=== PATIENT | male | born 1980 | race Hispanic/Latino ===

== ENCOUNTER 2016-06-09 22:21 | Emergency (ER) | payer SELFPAY ==
[2016-06-09] MEDS ORDERED: Ondansetron ODT 4 MG TAB ONE (22:51)
--- NOTE | 2016-06-09 22:54 | ERRECORD ---
[facility] EMERGENCY RECORD HPI SHORTNESS OF BREATH (22:36 JLOY) CHIEF COMPLAINT: Patient presents for evaluation of shortness of breath, Patient presents for evaluation of Pt with 2 weeks of dry cough, SOB, and chest tightness. Also with a few days of hoarse voice and felling of throat tight. Has a childhood history of asthma but no meds or treatment recently. HISTORIAN: History provided by patient. LOCATION: Symptoms are generalized. QUALITY: Symptoms described as tightness. TIME COURSE: Gradual onset of symptoms, Symptoms are worsening, are constant. ASSOCIATED WITH: No associated chills, Associated with cough, No associated diarrhea, No associated fever, No associated hemoptysis, Associated with nausea, intermittent, No associated vomiting. EXACERBATED BY: Patient's condition exacerbated by nothing. RELIEVED BY: Patient's condition relieved by nothing, Patient's condition relieved by nothing because patient has not tried anything for relief. ROS (22:38 JLOY) CONSTITUTIONAL: Historian denies chills, denies fever. EYES: Historian denies eye pain, denies eye redness, denies eye discharge. ENT: Historian denies rhinorrhea, denies sore throat. CARDIOVASCULAR: chest tightness. RESPIRATORY: Historian reports cough, reports shortness of breath, denies sputum. GI: Historian denies abdominal pain, denies constipation, denies diarrhea, reports nausea, denies vomiting. GENITOURINARY MALE: Historian denies dysuria, denies hematuria. MUSCULOSKELETAL: Historian denies back pain. SKIN: Historian denies rash. NEUROLOGIC: Historian denies dizziness, occasional mild HUTCHISON. PAST MEDICAL HISTORY MEDICAL HISTORY: Tetanus not up to date, Past medical history includes pulmonary disease, asthma, Flu vaccine not up to date, Pneumococcal vaccine not up to date,. (22:30 KASA) MALE SURGICAL HISTORY: Left ear reconstruction (took cartlidge from ribs). (22:30 KASA) PSYCHIATRIC HISTORY: No previous psychiatric history. (22:30 KASA) SOCIAL HISTORY: Patient drinks socially, every week, Patient is a former drug user, abused marijuana, Drug history notes: Last used about a month ago, Patient has no smoking history, Lives at home, Lives with friends. (22:30 KASA) NOTES: Nursing records reviewed, Agree with nursing records. (22:39 JLOY) &a-1R&a+25V*p+0X*k3489I*c202B*c15G*c2P*p-0X&a-25V&a+1R Name: Bassam Wells : 1980 M35 MedRec: [id number] AcctNum: [id number] Prepared: TueJun 09, 2016 23:31 by Interface Page 1 of 3 pMD [facility] EMERGENCY RECORD KNOWN ALLERGIES No Known Drug Allergies CURRENT MEDICATIONS No recorded medications VITAL SIGNS VITAL SIGNS: BP: 148/93, Pulse: 66, Resp: 13, Temp: 99.1 (Oral), Pain: 8 (Pressure), O2 sat: 98 on Room Air, Time: 06/09/2016 22:24. (22:24 KASA) BP: 141/109, Pulse: 78, Resp: 17, O2 sat: 99 on Room Air, Time: 06/09/2016 23:00. (23:00 KASA) BP: 130/88, Pulse: 73, Resp: 15, O2 sat: 97 on Room Air, Time: 06/09/2016 23:03. (23:03 KASA) BP: 121/77, Pulse: 69, Resp: 16, O2 sat: 95 on RA, Time: 06/09/2016 23:21. (23:21 KASA) PHYSICAL EXAM (22:38 [facility]) CONSTITUTIONAL: Vital Signs Reviewed, Patient appears non toxic, Patient alert and oriented to person, place and time. EYES: Eye exam included findings of eyelids normal to inspection, Pupils equally round and reactive to light, Conjunctiva normal. ENT: Pharynx exam normal, Uvula exam normal, Tonsil exam normal, Mouth exam normal, mucous membranes moist. NECK: Neck exam included findings of normal range of motion, Trachea midline, Cervical adenopathy, tender. RESPIRATORY CHEST: Respiratory exam included findings of no respiratory distress, No wheezing, No rales, No rhonchi, Chest exam included findings of chest movement symmetrical, coarse BS bilaterally. CARDIOVASCULAR: Cardiovascular exam included findings of heart rate regular rate and rhythm, Heart sounds normal, normal S1, normal S2, no murmurs, no rub, no gallop. ABDOMEN MALE: Abdominal exam included findings of abdomen tender, to the epigastric region, mild intensity, Bowel sounds normal, Liver normal, Spleen normal, no peritoneal signs, no rigidity, no guarding, no rebound. NEURO: Mercedita coma scale 15, Neuro exam findings include patient oriented to person, place and time, Speech normal. SKIN: Skin exam included findings of skin warm, dry, and normal in color, no rash. PSYCHIATRIC: Normal affect. MEDICATION ADMINISTRATION SUMMARY Drug Name: azithromycin oral, Dose Ordered: 500 mg, Route: Oral, Status: Given, Time: 23:18 06/09/2016, Drug Name: Zofran ODT, Dose Ordered: 4 mg, Route: Oral, Status: Given, Time: 22:52 06/09/2016, &a-1R&a+25V*p+0X*x8447N*c202B*c15G*c2P*p-0X&a-25V&a+1R Name: Bassam Wells : 1980 M35 MedRec: [id number] AcctNum: [id number] Prepared: TueJun 09, 2016 23:31 by Interface Page 2 of 3 pMD [facility] EMERGENCY RECORD Drug Name: *DuoNeb, Dose Ordered: 3 mL, Route: Nebulize, Status: Given, Time: 22:39 06/09/2016, *Additional information available in notes, Detailed record available in Medication Service section. DOCTOR NOTES (23:15 FRED) RE-EVALUATION: The patient's condition is unchanged, Exam unchanged after the neb treatment. PROBLEM LIST No recorded problems DIAGNOSIS (23:14 FRED) FINAL: PRIMARY: Acute bronchitis. PRESCRIPTION (23:14 FRED) azithromycin oral: TABLET : 250 mg : ORAL : Quantity: 250 Unit: mg Route: ORAL Schedule: once a day Dispense: 4 May substitute. Refills: No Refills . NOTES: No Refills. DISPOSITION PATIENT: Disposition Type: Discharge, Disposition: *Discharge Home. (23:14 FRED) Patient left the department. (23:28 KELSEY) Sousa: FRED=MD Beau, Kareem COLE=YANELI Jimenez, Elina &a-1R&a+25V*p+0X*a2791P*c202B*c15G*c2P*p-0X&a-25V&a+1R Name: Amber Wellsan A : 1980 M35 MedRec: [id number] AcctNum: [id number] Prepared: Rex Jun 09, 2016 23:31 by Interface Page 3 of 3 pMD MTDD
--- NOTE | 2016-06-09 22:59 | PICIS ---
[facility] EMERGENCY RECORD TRIAGE (22:26 KASA) TRIAGE NOTES: Difficulty breathing, "feels like something is pressing on my chest at time" "feels like something is stuck in my throat",. (22:26 KASA) PATIENT: NAME: Bassam Wells, AGE: 35, GENDER: male, : Tue1980, TIME OF GREET: TueJun 09, 2016 22:21, PREFERRED LANGUAGE: Iranian, ETHNICITY: or , ECODE BILLING MAP: [facility], SSN: [id number], Zip Code: [address], KG WEIGHT: 72.57, PHONE: , , , PERSON ID: [id number], PCP: Alphonso HARDEN DONNA. (22:26 KASA) COMPLAINT: DIFFICULTY BREATHING. (22:26 KASA) ADMISSION: URGENCY: 3 Urgent, ADMISSION SOURCE: Home, TRANSPORT: CAR, BED: ER -03. (22:26 KASA) ASSESSMENT: Assessment: RR even and slightly labored., Symptoms began 06/09/2016. (22:30 KASA) PAIN: Patient complains of pain described as, pressure, on a scale 0-10 patient rates pain as 8, Location Chest, Pain is constant, Onset was 05/26/2016, Aggravating factors:, No relieving factors, Notes: on-going for the past 2 weeks but constant since this weekend. (22:30 KASA) IMMUNIZATIONS: Flu vaccine not up to date, Tetanus not up to date. (22:30 KASA) SIRS SCORING: Heart Rate 55-109 (0), Temp range 96.8-101.1 (0), respiratory rate 12-24 (0), Mental Status altered: no (0). (22:30 KASA) TRIAGE SCREENING: Patient denies suicidal ideation, Patient denies presence of domestic violence. (22:30 KASA) PROVIDERS: TRIAGE NURSE: Elina Jimenez RN. (22:26 KASA) VITAL SIGNS: BP 148/93, Pulse 66, Resp 13, Temp 99.1, (Oral), Pain 8, (Pressure), O2 Sat 98, on Room Air, Time 06/09/2016 22:24. (22:24 KASA) PREVIOUS VISIT ALLERGIES: No Known Drug Allergies. (22:26 KASA) No Known Drug Allergies. (22:30 KASA) KNOWN ALLERGIES No Known Drug Allergies CURRENT MEDICATIONS No recorded medications VITAL SIGNS VITAL SIGNS: BP: 148/93, Pulse: 66, Resp: 13, Temp: 99.1 (Oral), Pain: 8 (Pressure), O2 sat: 98 on Room Air, Time: 06/09/2016 22:24. (22:24 KASA) BP: 141/109, Pulse: 78, Resp: 17, O2 sat: 99 on Room Air, Time: 06/09/2016 23:00. (23:00 KASA) BP: 130/88, Pulse: 73, Resp: 15, O2 sat: 97 on Room Air, Time: 06/09/2016 23:03. (23:03 KASA) &a-1R&a+25V*p+0X*a8735H*c202B*c15G*c2P*p-0X&a-25V&a+1R Name: Russell Bassam A : 1980 M35 MedRec: [id number] AcctNum: [id number] Prepared: TueJun 09, 2016 23:36 by Interface Page 1 of 8 pMD [facility] EMERGENCY RECORD BP: 121/77, Pulse: 69, Resp: 16, O2 sat: 95 on RA, Time: 06/09/2016 23:21. (23:21 KASA) NURSING ASSESSMENT: RESPIRATORY /CHEST (22:30 KASA) CONSTITUTIONAL: Patient arrives ambulatory, Gait steady, History obtained from patient, Patient appears, uncomfortable, Patient cooperative, Patient alert, Oriented to person, place and time, Skin warm, Skin dry, Skin normal in color, Mucous membranes pink, Mucous membranes moist, Patient complains of Difficulty breathing, Difficulty breathing, "feels like something is pressing on my chest at time" "feels like something is stuck in my throat",. RESPIRATORY/CHEST: Respiratory assessment findings include respiratory effort easy, Respirations regular, Converses, with hoarse voice, Neck and chest exam findings include trachea midline, Chest expansion equal, Chest movement symmetrical, Associated with cough, no associated fever. SAFETY: Side rails up, Cart/Stretcher in lowest position, Family at bedside, Call light within reach, Hospital ID band on. NURSING PROCEDURE: DISCHARGE NOTE (23:21 KASA) DISCHARGE: Patient discharged to home, ambulating without assistance, friend driving, accompanied by friend, Summary of Care printed/ provided, Discharge instructions given to patient, Simple or moderate discharge teaching performed, . Educated and provided handout regarding diagnosis of: Acute Bronchitis Follow up with PCP in 7-10 days., Prescriptions given and instructions on side effects given, Name of prescription(s) given: Azithromycin, Above person(s) verbalized understanding of discharge instructions and follow-up care, Patient treated and evaluated by physician. BELONGINGS: Belongings and valuables with patient upon arrival to the Emergency Department include:, Belongings and valuables with patient at time of discharge include:, Belongings remain with patient, Valuables remain with patient. VITAL SIGNS: BP: 121, / 77, Pulse: 69, Resp: 16, O2 sat: 95, on: RA. NURSING PROCEDURE: RESPIRATORY INTERVENTIONS PATIENT IDENTIFIER: Patient actively involved in identification process, Patient's identity verified by patient stating name, Patient's identity verified by patient stating date. (22:37 KASA) RESPIRATORY INTERVENTIONS: Respiratory interventions indicated for SOB, Patient given ALBUTEROL with ATROVENT, Single dose nebulizer, Dose: 3 ml, Aerochamber used, Aerochamber instruction given, Patient returned demonstration of use of aerochamber. (22:37 KASA) FOLLOW-UP: After procedure, oxygen saturation 99%, on room air. &a-1R&a+25V*p+0X*i4613X*c202B*c15G*c2P*p-0X&a-25V&a+1R Name: Bassam Wells : 1980 M35 MedRec: [id number] AcctNum: [id number] Prepared: TueJun 09, 2016 23:36 by Interface Page 2 of 8 pMD [facility] EMERGENCY RECORD (22:49 KASA) SAFETY: Side rails up, Cart/Stretcher in lowest position, Call light within reach, Hospital ID band on, Friend(s) at bedside. (22:37 KASA) NURSING PROCEDURE: TEACHING (23:19 KASA) TEACHING: Simple or moderate teaching performed, by YANELI Arteaga, BRONCHITIS is an infection of the air passages (bronchial tubes). It often occurs during the common cold. Symptoms include cough with mucus (phlegm) and low-grade fever. Bronchitis usually lasts 7-14 days. Mild cases can be treated with simple home remedies. More severe infection is treated with an antibiotic. Home Care: 1. If symptoms are severe, rest at home for the first 2-3 days. When you resume activity, don't let yourself get too tired. 2. Do not smoke. Avoid being exposed to the smoke of others. 3. You may use acetaminophen (Tylenol) or ibuprofen (Motrin, Advil) to control fever or pain, unless another medicine was prescribed for this. [NOTE: If you have chronic liver or kidney disease or ever had a stomach ulcer or GI bleeding, talk with your doctor before using these medicines.] 4. Your appetite may be poor, so a light diet is fine. Avoid dehydration by drinking 6-8 glasses of fluids per day (water, soft, drinks, juices, tea, soup, etc.). Extra fluids will help loosen secretions in the lungs. 5. Tycl-wev-kqcijms cough medicines that contain dextromethorphan (such as Robitussin DM) and decongestants (Actifed or Sudafed) may help relieve cough and congestion. [NOTE: Do not use decongestants if you have high blood pressure.] 6. Finish all antibiotic medicine, even if you are feeling better after only a few days. Follow Up with your doctor or as directed if you dont start to feel better after three days. [NOTE: If you are age 65 or older, or if you have chronic asthma or COPD, we recommend a PNEUMOCOCCAL VACCINATION every five years and a yearly INFLUENZAVACCINATION (FLU-SHOT) every . Ask your doctor about this. If you had an X-ray, a radiologist will review it. You will be notified of any new findings that may affect your care.] Get Prompt Medical Attention if any of the following occur: Fever over 100.4F (38.0C) for more than three days Trouble breathing, wheezing or pain with breathing Coughing up blood or increased amounts of colored sputum Weakness, drowsiness, headache, facial pain, ear pain or a stiff neck PATIENT &/OR CAREGIVER VERBALIZED UNDERSTANDING OF THE TEACHING PROVIDED AND WAS ABLE TO DEMONSTRATE TEACHING EVIDENCED BY TEACH BACK. &a-1R&a+25V*p+0X*e2668R*c202B*c15G*c2P*p-0X&a-25V&a+1R Name: Bassam Wells : 1980 M35 MedRec: [id number] AcctNum: [id number] Prepared: TueJun 09, 2016 23:36 by Interface Page 3 of 8 pMD [facility] EMERGENCY RECORD NURSING PROCEDURE: TRANSPORT TO TESTS PATIENT IDENTIFIER: Patient actively involved in identification process, Patient's identity verified by patient stating name, Patient's identity verified by patient stating date. (22:49 KASA) TRANSPORT TO TESTS: Transport indicated to facilitate diagnosis, Patient transported to x-ray, via cart, Accompanied by x-ray wellfield technician. (22:49 KASA) FOLLOW-UP: After procedure, patient returned to emergency department. (22:59 KASA) SAFETY: Side rails up, Cart/Stretcher in lowest position, Call light within reach, Hospital ID band on, Friend(s) at bedside. (22:49 KASA) ORDER DETAILS Order Name: ERRT * Smal Vol Neb Initial Trmt, Status: Active, Time: 23:11 06/09/2016, User: KELSEY, - Ordered for: MD Yanez Joshua, - Entered by: YANELI Jimenez Kathy - TueJun 09, 2016 23:11, - Quantity: 1, Order Name: XR Chest Pa & Lat STANDARD, Status: Active, Time: 22:36 06/09/2016, User: FRED, - Ordered for: MD Yanez Joshua, - Entered by: MD Yanez Joshua - TueJun 09, 2016 22:36, - Quantity: 1. MEDICATION ADMINISTRATION SUMMARY Drug Name: azithromycin oral, Dose Ordered: 500 mg, Route: Oral, Status: Given, Time: 23:18 06/09/2016, Drug Name: Zofran ODT, Dose Ordered: 4 mg, Route: Oral, Status: Given, Time: 22:52 06/09/2016, Drug Name: *DuoNeb, Dose Ordered: 3 mL, Route: Nebulize, Status: Given, Time: 22:39 06/09/2016, *Additional information available in notes, Detailed record available in Medication Service section. MEDICATION SERVICE azithromycin oral: Order: azithromycin oral (azithromycin) - Dose: 500 mg : Oral Ordered by: Kareem Yanez MD Entered by: Kareem Yanez MD TueJun 09, 2016 23:13 , Acknowledged by: Elina Jimenez RN TueJun 09, 2016 23:16 Documented as given by: Elina Jimenez RN TueJun 09, 2016 23:18 Patient, Medication, Dose, Route and Time verified prior to administration. Amount given: 500 mg, Site: Medication administered P.O., Correct patient, time, route, dose and medication confirmed prior to administration, Patient advised of actions and side-effects prior to administration, Allergies confirmed and medications reviewed prior to &a-1R&a+25V*p+0X*j7937F*c202B*c15G*c2P*p-0X&a-25V&a+1R Name: Russell Jimbo : 1980 M35 MedRec: [id number] AcctNum: [id number] Prepared: TueJun 09, 2016 23:36 by Interface Page 4 of 8 pMD [facility] EMERGENCY RECORD administration, Patient in position of comfort, Side rails up, Cart in lowest position, Friend at bedside. DuoNeb: Order: DuoNeb (ipratropium bromide/albuterol sulfate) - Dose: 3 mL : Nebulize Notes: (0.5mg Ipratropium Leoti/3mg Albuterol Sulfate = 3ml) Ordered by: Kareem Yanez MD Entered by: Kareem Yanez MD TueJun 09, 2016 22:36 , Acknowledged by: Elina Jimenez RN TueJun 09, 2016 22:39 Documented as given by: Elina Jimenez RN TueJun 09, 2016 22:39 Patient, Medication, Dose, Route and Time verified prior to administration. Amount given: 3 ml, Site: Medication administered via Hand-held nebulizer, With oxygen, Correct patient, time, route, dose and medication confirmed prior to administration, Patient advised of actions and side-effects prior to administration, Allergies confirmed and medications reviewed prior to administration, Patient in position of comfort, Side rails up, Cart in lowest position, Friend at bedside. Zofran ODT: Order: Zofran ODT (ondansetron) - Dose: 4 mg : Oral Ordered by: Kareem Yanez MD Entered by: Kareem Yanez MD TueJun 09, 2016 22:51 , Acknowledged by: Elina Jimenez RN TueJun 09, 2016 22:52 Documented as given by: Elina Jimenez RN TueJun 09, 2016 22:52 Patient, Medication, Dose, Route and Time verified prior to administration. Amount given: 4 mg, Site: Medication administered P.O., Correct patient, time, route, dose and medication confirmed prior to administration, Patient advised of actions and side-effects prior to administration, Allergies confirmed and medications reviewed prior to administration, Patient in position of comfort, Side rails up, Cart in lowest position, Friend at bedside. HPI SHORTNESS OF BREATH (22:36 [facility]) CHIEF COMPLAINT: Patient presents for evaluation of shortness of breath, Patient presents for evaluation of Pt with 2 weeks of dry cough, SOB, and chest tightness. Also with a few days of hoarse voice and felling of throat tight. Has a childhood history of asthma but no meds or treatment recently. HISTORIAN: History provided by patient. LOCATION: Symptoms are generalized. QUALITY: Symptoms described as tightness. TIME COURSE: Gradual onset of symptoms, Symptoms are worsening, are constant. ASSOCIATED WITH: No associated chills, Associated with cough, No associated diarrhea, No associated fever, No associated hemoptysis, Associated with nausea, intermittent, No associated vomiting. EXACERBATED BY: Patient's condition exacerbated by nothing. RELIEVED BY: Patient's condition relieved by nothing, Patient's condition relieved &a-1R&a+25V*p+0X*r8368X*c202B*c15G*c2P*p-0X&a-25V&a+1R Name: Bassam Wells : 1980 M35 MedRec: [id number] AcctNum: [id number] Prepared: TueJun 09, 2016 23:36 by Interface Page 5 of 8 pMD [facility] EMERGENCY RECORD by nothing because patient has not tried anything for relief. ROS (22:38 [facility]) CONSTITUTIONAL: Historian denies chills, denies fever. EYES: Historian denies eye pain, denies eye redness, denies eye discharge. ENT: Historian denies rhinorrhea, denies sore throat. CARDIOVASCULAR: chest tightness. RESPIRATORY: Historian reports cough, reports shortness of breath, denies sputum. GI: Historian denies abdominal pain, denies constipation, denies diarrhea, reports nausea, denies vomiting. GENITOURINARY MALE: Historian denies dysuria, denies hematuria. MUSCULOSKELETAL: Historian denies back pain. SKIN: Historian denies rash. NEUROLOGIC: Historian denies dizziness, occasional mild HUTCHISON. PAST MEDICAL HISTORY MEDICAL HISTORY: Tetanus not up to date, Past medical history includes pulmonary disease, asthma, Flu vaccine not up to date, Pneumococcal vaccine not up to date,. (22:30 KASA) MALE SURGICAL HISTORY: Left ear reconstruction (took cartlidge from ribs). (22:30 KASA) PSYCHIATRIC HISTORY: No previous psychiatric history. (22:30 KASA) SOCIAL HISTORY: Patient drinks socially, every week, Patient is a former drug user, abused marijuana, Drug history notes: Last used about a month ago, Patient has no smoking history, Lives at home, Lives with friends. (22:30 KASA) NOTES: Nursing records reviewed, Agree with nursing records. (22:39 JLOY) PHYSICAL EXAM (22:38 JLOY) CONSTITUTIONAL: Vital Signs Reviewed, Patient appears non toxic, Patient alert and oriented to person, place and time. EYES: Eye exam included findings of eyelids normal to inspection, Pupils equally round and reactive to light, Conjunctiva normal. ENT: Pharynx exam normal, Uvula exam normal, Tonsil exam normal, Mouth exam normal, mucous membranes moist. NECK: Neck exam included findings of normal range of motion, Trachea midline, Cervical adenopathy, tender. RESPIRATORY CHEST: Respiratory exam included findings of no respiratory distress, No wheezing, No rales, No rhonchi, Chest exam included findings of chest movement symmetrical, coarse BS bilaterally. CARDIOVASCULAR: Cardiovascular exam included findings of heart rate regular rate and rhythm, Heart sounds normal, normal S1, normal S2, no murmurs, no rub, no gallop. &a-1R&a+25V*p+0X*u6210R*c202B*c15G*c2P*p-0X&a-25V&a+1R Name: Bassam Wells: 1980 M35 MedRec: [id number] AcctNum: [id number] Prepared: TueJun 09, 2016 23:36 by Interface Page 6 of 8 pMD [facility] EMERGENCY RECORD ABDOMEN MALE: Abdominal exam included findings of abdomen tender, to the epigastric region, mild intensity, Bowel sounds normal, Liver normal, Spleen normal, no peritoneal signs, no rigidity, no guarding, no rebound. NEURO: Evie coma scale 15, Neuro exam findings include patient oriented to person, place and time, Speech normal. SKIN: Skin exam included findings of skin warm, dry, and normal in color, no rash. PSYCHIATRIC: Normal affect. EVENTS TRANSFER: Triage to Emergency Emergency Room -03. (TueJun 09, 2016 22:26 KASA) Removed from Emergency Emergency Room -03. (23:28 KASA) DOCTOR NOTES (23:15 JLOY) RE-EVALUATION: The patient's condition is unchanged, Exam unchanged after the neb treatment. PROBLEM LIST No recorded problems DIAGNOSIS (23:14 JLOY) FINAL: PRIMARY: Acute bronchitis. DISPOSITION PATIENT: Disposition Type: Discharge, Disposition: *Discharge Home. (23:14 JLOY) Patient left the department. (23:28 KASA) INSTRUCTION (23:14 JLOY) DISCHARGE: BRONCHITIS, ABX TX (ADULT). FOLLOWUP: Alphonso HARDEN, [facility], [address] [id number], [id number], Follow up with Primary Care Physician in 7-10 days. PRESCRIPTION (23:14 JLOY) azithromycin oral: TABLET : 250 mg : ORAL : Quantity: 250 Unit: mg Route: ORAL Schedule: once a day Dispense: 4 May substitute. Refills: No Refills . NOTES: No Refills. IMAGING *DISCHARGE INSTRUCTIONS RECEIPT: Image captured from scanner. (23:28 KASA) *SUPPLY CHARGE SHEET: Image captured from scanner. (23:28 KASA) *EKG: Image captured from scanner. (23:29 KASA) ADMIN DIGITAL SIGNATURE: MD Yanez Joshua. (22:39 JLOY) &a-1R&a+25V*p+0X*c5251Y*c202B*c15G*c2P*p-0X&a-25V&a+1R Name: Russell Jimbo : 1980 5 MedRec: [id number] AcctNum: [id number] Prepared: TueJun 09, 2016 23:36 by Interface Page 7 of 8 pMD [facility] EMERGENCY RECORD MD Beau, Kareem. (23:15 FRED) Sousa: FRED=MD Beau, Kareem COLE=YANELI Jimenez, [facility] &a-1R&a+25V*p+0X*z6058P*c202B*c15G*c2P*p-0X&a-25V&a+1R Name: Bassam Wells : 1980 5 MedRec: [id number] AcctNum: [id number] Prepared: TueJun 09, 2016 23:36 by Interface Page 8 of 8 pMD MTDD
[2016-06-09] MEDS ORDERED: Azithromycin 250 MG TAB ONE (23:16)
--- NOTE | 2016-06-10 00:24 | RAD ---
TWO VIEWS OF THE CHEST: COMPARISON: None. HISTORY: Dry cough with shortness of breath and chest tightness. FINDINGS: Two views of the chest show normal sized cardiomediastinal silhouette. There is no evidence of conso lidation, mass, or pleural effusion. The bones are unremarkable. IMPRESSION: No evidence of acute cardiopulmonary disease. POS: [facility]
== END 2016-06-09 23:21 | disposition home or self-care (01) ==
LOC: NAV ERS 22:21
DX: J20.9 Acute bronchitis, unspecified (principal)
CPT/HCPCS: 71020; 94640; J7620; Q0162

== ENCOUNTER 2018-03-11 08:59 | Emergency (ER) | payer OTHER, SELFPAY ==
[2018-03-11] MEDS ORDERED: Lidocaine 1% (PF) 30 ML VIAL ONE (09:27)
[2018-03-11] MEDS ORDERED: Adacel (T-DAP) 0.5 ML VIAL ONE (09:38)
== END 2018-03-11 10:00 | disposition home or self-care (01) ==
LOC: NAV ERS 08:59
DX: L02.31 Cutaneous abscess of buttock (principal); I10 Essential (primary) hypertension; J45.909 Unspecified asthma, uncomplicated
CPT/HCPCS: 10061; 87070; 87077; 87186; 87205; 90471; 90715; J2001

== ENCOUNTER 2024-03-11 13:40 | Emergency (ER) | payer SELFPAY ==
[2024-03-11] MEDS ORDERED: Clindamycin 150 MG CAP ONE (14:10)
[2024-03-11] MEDS ORDERED: Naproxen 500 MG TAB ONE (14:10)
[2024-03-11 14:34] LABS: #Basophils 0.1 thou/uL (0.0-0.2); #Eosinphils 0.4 thou/uL (0.0-0.7); #Lymphocytes 2.2 thou/uL (1.20-3.40); #Monocytes 0.6 thou/uL (0.11-0.59); #Neutrophils 4.9 thou/uL (1.40-6.50); %Basophils 1.1 % (0.0-1.0); %Eosinophils 5.3 % (0.0-10.0); %Monocytes 7.1 % (0.0-10.0); %Neutrophils 59.5 % (42.0-75.0); Hematocrit 41.5 % (42.0-52.0); Hemoglobin 14.2 g/dL (14.0-18.0); Mean Corpuscular HGB CONC 34.2 g/dL (32.0-36.0); Mean Corpuscular Hemoglobin 33.5 pg (27.0-31.0); Mean Platelet Volume 11.4 fL (7.4-10.4); Platelet Count 236 10x3/uL (130-400); RBC Distribution Width 10.6 % (11.5-14.5); Red Blood Cell (RBC) Count 4.24 mill/uL (4.70-6.10); White Blood Cell (WBC) Count 8.2 10x3/uL (4.8-10.8)
[2024-03-11 14:54] LABS: ALT (SGPT) 68 U/L (8-55); AST (SGOT) 45 U/L (5-34); Albumin 4.2 g/dL (3.5-5.0); Alkaline Phosphatase 132 U/L (40-110); Anion Gap 15 mmol/L (10-20); BUN (Urea Nitrogen) 14 mg/dL (8.9-20.6); Calc. Creatinine Clearance 0 mL/min (70-130); Calcium 9.7 mg/dL (7.8-10.44); Carbon Dioxide 26 mmol/L (22-29); Chloride 102 mmol/L (98-107); Estimated GFR 84; Globulin 4.3 g/dL (2.4-3.5); Glucose 110 mg/dL (70-105); Potassium 3.6 mmol/L (3.5-5.1); Protein, Total 8.5 g/dL (6.0-8.3); Sodium 139 mmol/L (136-145)
== END 2024-03-11 15:18 | disposition home or self-care (01) ==
LOC: NAV ERS 13:40
DX: L03.116 Cellulitis of left lower limb (principal); R59.0 Localized enlarged lymph nodes
CPT/HCPCS: 80053; 85025; 87070; 87205; 99283